=== PATIENT | male | born 1950 | race Two or more races ===

== ENCOUNTER 2020-08-24 12:00 | Emergency (ER) | payer OTHER ==
[~2020-08-24] VITALS: Ht 172.7 cm; Wt 106.6 kg
[~2020-08-24 12:00] MED LIST: LOSARTAN-HCTZ1 EACH; OXYC1TAB9 PO; PROTONIX40 MG PO; ZOCOR20 MG
[2020-08-24] MEDS ORDERED: ZESTRIL20 MG (12:24)
== END 2020-08-24 18:00 | disposition home or self-care (01) ==
LOC: ER 12:00
DX: N20.0 Calculus of kidney (principal); K80.20 Calculus of gallbladder without cholecystitis without obstruction; Z03.818 Encounter for observation for suspected exposure to other biological agents ruled out